=== PATIENT | male | born 1985 | race Caucasian/White ===

== ENCOUNTER 2018-09-21 19:08 | Emergency (ER) | payer SELFPAY ==
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
== END 2018-09-21 20:30 | disposition left against medical advice (07) ==
LOC: ER 19:08
DX: R69 Illness, unspecified (principal)

== ENCOUNTER 2018-09-21 22:37 | Emergency (ER) | payer SELFPAY ==
[2018-09-21] MEDS ORDERED: SODIUM CHLORIDE 0.9% 1000ML 1,000 ML IV ONE (23:00)
[2018-09-21] MEDS ORDERED: LORAZEPAM INJ 2 MG/ML VIAL IV ONE (23:00)
--- NOTE | 2018-09-22 00:11 | NUR ---
PATIENT RESTING SOUNDLY, SNORING, BILAT SIDE RAILS UP ON STRETCHER, WILL CONT TO MONITOR
--- NOTE | 2018-09-22 03:00 | NUR ---
PATIENT CONTINUES TO SLEEP COMFORTABLY ON STRETCHER. CONT TO MONITOR
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
== END 2018-09-22 07:22 | disposition home or self-care (01) ==
LOC: FSED 22:37
DX: F10.129 Alcohol abuse with intoxication, unspecified (principal); F15.129 Other stimulant abuse with intoxication, unspecified
CPT/HCPCS: 80053; 81003; 82553; 84484; 85025; 93005; 99284; J2060; J7030